=== PATIENT | male | born 1990 | race Caucasian/White ===

== ENCOUNTER 2020-09-27 10:40 | Emergency (ER) | payer BC ==
[~2020-09-27] VITALS: Ht 190.5 cm; Wt 102.3 kg
[2020-09-27] MEDS ORDERED: BOOSTRIX/ADACEL VACCINE (DIPHTH/PERTUSS/ACELL/TETANUS) 0.5ML SYR IM ONE (11:30)
[2020-09-27] MEDS ORDERED: ceFAZolin SOD 1 GM in D5W MINI-BAG PLUS 50 ML IV ONE ×2 (11:50→12:15)
[2020-09-27] MEDS ORDERED: ceFAZolin SOD 2 GM in IV 1 EA IV ONE (12:20)
[2020-09-27] MEDS ORDERED: LIDOCAINE 1% MDV 20ML VIAL INFIL ONE (12:20)
--- NOTE | 2020-09-27 12:23 | REP ---
INDICATION: laceration to L forearm. COMPARISON: None. TECHNIQUE: AP and lateral views of the left forearm. FINDINGS: AP and latter views of the oral left forearm demonstrate soft tissue swelling along the ventral aspect of the forearm.. No fracture or subluxation is seen. No opaque foreign body noted. IMPRESSION: Soft tissue swelling. No fracture or opaque foreign body seen.. <Electronically signed by Yrn Oneil > 09/27/20 [id number]
[2020-09-27 14:51] VITALS: BP 142/74
--- NOTE | 2020-09-27 15:50 | ER ---
ER CONSULTATION DATE: 09/27/2020 TIME: Approximately 1:00 p.m. CONSULTING SERVICE: Orthopedic surgery. CONSULTING PHYSICIAN: Arthur Bocanegra M.D. HISTORY OF PRESENT ILLNESS: This is a 30-year-old male with a left forearm volar laceration with a concomitant sensory branch of the radial nerve destruction as well as flexor carpi radialis (FCR) destruction. The patient was working on a toilet when it broke over a ledge and cut his left lower forearm. The patient had controlled bleeding at presentation; however, had the aforementioned injury. He presented to [facility] for further evaluation and treatment. PAST MEDICAL HISTORY: Testicular cancer. PAST SURGICAL HISTORY: 1. Lymph node resection. 2. Testicle removal. CURRENT MEDICATIONS: Patient denies. ALLERGIES: Patient denies. SOCIAL HISTORY: Patient endorses a 3-4 beer a day drinking habit. Nonsmoker. Non-intravenous (IV) drug user. REVIEW OF SYSTEMS: A 14 point review of systems is negative unless as described in the history of present illness (HPI) above. PHYSICAL EXAMINATION: Alert and oriented to person, time and place. CARDIAC: Regular rate and rhythm. CHEST: Equal rise and fall of the chest bilaterally. LEFT UPPER EXTREMITY: Patient had motor intact to the musculocutaneous, axillary, radial, median and ulnar nerve distributions. He had diminished sensation to the radial nerve distribution; however, he did have sensation intact to light touch to the musculocutaneous, axillary, median and ulnar nerve distributions. Patient did have some mild weakness with left wrist flexion with radial deviation, which would be indicative of flexor carpi radialis (FCR) disruption. He otherwise has 2+ radial and ulnar pulses with brisk capillary refill to the digits of his left hand. He had an approximately 1 inch transverse incision overlying the middle of his volar aspect of his left forearm and secondary smaller incision 1 inch proximal to that injury, 1 cm in length and transverse in nature. IMAGING DATA: Left forearm radiographs demonstrate soft tissue destruction described above with soft tissue destruction at the mid level of the forearm. IMPRESSION: This is a 30-year-old male with a left forearm volar laceration with a concomitant sensory branch of the radial nerve destruction as well as flexor carpi radialis (FCR) destruction. PLAN: At this point in time, necessary microsurgery will be required to repair the sensory branch of the radial nerve as well as the flexor carpi radialis (FCR) tendon repair. The patient will be transferred to [facility] for further evaluation and treatment. The patient was copiously irrigated at bedside in the emergency room (ER). His wounds were explored and the patient was given local pain medication. His volar laceration was loosely approximated and he was placed in a well-padded volar splint for soft tissue rest. He will be transferred at his earliest convenience to [facility] for further evaluation and treatment regarding his injury.
== END 2020-09-27 14:53 | disposition short-term general hospital (02) ==
LOC: EDBD 10:40 → M ED 10:40
DX: S51.812A Laceration without foreign body of left forearm, initial encounter (principal); S54.22XA Injury of radial nerve at forearm level, left arm, initial encounter; W26.8XXA Contact with other sharp object(s), not elsewhere classified, initial encounter; Y92.89 Other specified places as the place of occurrence of the external cause
CPT/HCPCS: 12002; 73090; 90471; 90715; 96365; 99284; J0690